=== PATIENT | male | born 1995 | race Hispanic/Latino ===

== ENCOUNTER 2021-05-07 22:00 | Emergency (ER) | payer OTHER, SELFPAY ==
--- NOTE | ~2021-05-07 | XR_ITS ---
XR chest 2V DATE: 05/07/2021 22:19 INDICATION: Palpitations for 2 days TECHNIQUE: PA and lateral views COMPARISON: 11/25/2015 and 09/28/2015 PA and lateral chest FINDINGS: Normal heart size. There is no soft tissue prominence in the right suprahilar area since 09/28/2015. The gabby and mediastinum otherwise appear unremarkable. Normal heart size. Otherwise no pulmonary infiltrate or consolidation, pleural effusion or pulmonary vascular congestion or pneumothorax is detected. Included skeletal structures are unremarkable. IMPRESSION: Interval increased soft tissue prominence in the right suprahilar area since 09/28/2015. Co nsider follow-up chest radiographs or CT thorax Reviewed, dictated and finalized at location A. IMPRESSION: Interval increased soft tissue prominence in the right suprahilar a chandni since 09/28/2015. Consider follow-up chest radiographs or CT thorax
--- NOTE | 2021-05-07 22:01 | ECG_ITS ---
Measurements Intervals [place] Rate: 83 P: 23 MO: 120 QRS: 42 QRSD: 90 T: 31 QT: 343 QTc: 404 Interpretive Statements SINUS RHYTHM WITH SINUS ARRHYTHMIA NORMAL ECG Electronically Signed On 05-08-2021 6:29:17 CDT by Salvatore Braun D.O.
[2021-05-07 22:19] LABS: Basophils Absolute Auto 0.1 K/mm3 (0.0-0.1); Basophils Percent Auto 0.8 % (0.2-1.2); Eosinophils Absolute Auto 0.1 K/mm3 (0-0.3); Eosinophils Percent Auto 1.2 % (0-4.4); Hematocrit 47.1 % (42.0-52.0); Hemoglobin 16.3 g/dL (14.0-18.0); Immature Granulocyte Absolute 0.03 K/mm3 (0.00-0.031); Immature Granulocyte Percent A 0.3 % (0-0.5); Lymphocytes Absolute Auto 3.34 K/mm3 (0.9-3.2); Lymphocytes Percent Auto 35.8 % (18.3-44.2); Mean Corpuscular HGB Conc 34.6 g/dl (32-36); Mean Corpuscular Volume 92.4 fl (80-100); Mean Platelet Volume 10.1 fl (7.4-10.4); Monocytes Absolute Auto 0.8 K/mm3 (0.1-0.6); Monocytes Percent Auto 8.4 % (2.6-8.5); Neutrophils Percent Auto 53.5 % (45.5-73.1); Platelet Count Result 272 k/mm3 (150-375); Red Cell Distribution Width 11.7 % (11.5-14.5); White Blood Count 9.3 K/mm3 (4.5-10.0)
[2021-05-07 22:21] VITALS: BP 155/102; PULSE 90; RESP 18; TEMP 37; O2SAT 98
[2021-05-07 22:30] LABS: Anion Gap 9 mmol/L (8-16); Blood Urea Nitrogen 22 mg/dL (9-20); Calcium 9.7 mg/dL (8.4-10.2); Carbon Dioxide 25 mmol/L (22-30); Chloride 101 mmol/L (98-107); Estimated CRCL calculation 130 ml/min; Estimated Glomerular Filt Rate > 60; Glucose 105 mg/dL (65-110); Potassium 3.7 mmol/L (3.4-5.0); Sodium 135 mmol/L (137-145)
[2021-05-07 22:31] LABS: Prothrombin Time 12.7 Seconds (11.1-14.7)
[2021-05-07 22:32] LABS: Partial Thromboplastin Time 27.1 SECONDS (22.3-36.8)
[2021-05-07 22:40] LABS: Troponin I < 0.012 ng/mL (0.000-0.034)
[2021-05-08 00:19] VITALS: BP 142/92; PULSE 79; RESP 16; O2SAT 99
--- NOTE | 2021-05-08 01:06 | ED.GENADULT ---
HPI - General Adult General Chief complaint: Arrhythmia/Palpitations Stated complaint: irregular heartrate since thursday Time Seen by Provider: 05/08/21 00:59 History of Present Illness HPI narrative: Patient is a 26-year-old gentleman who presents the emergency department chief complaint of palpitations. Patient reports that since Thursday he has been having episodes where he feels as though his heart skipping a beat. Patient reports that he drinks about 1 coffee per day denies energy drinks denies any stimulant powders does report that he does smoke marijuana both vape and also smokes the actual plan. Patient states that has had no chest pain no diaphoresis no syncope. Related Data Allergies Allergy/AdvReac Type Severity Reaction Status Date / Time No Known Allergies Allergy Mild Verified 03/02/13 19:40 Review of Systems Review of Systems: A 10 system review of systems was completed on the patient and is negative except for what is stated in the HPI. Nursing and ancillary documentation was reviewed. Exam Narrative: GENERAL: Well-appearing, well-nourished, and in no acute distress. HEAD: Normocephalic, atraumatic. EYES: PERRLA and EOMI. ENT: Nares clear, no rhinorrhea or epistaxis. Mucous membranes moist. NECK: Supple. CHEST: Clear to auscultation. No respiratory distress. HEART: Regular rate and rhythm. No murmur heard. Normal peripheral pulses. ABDOMEN: Soft, nontender, nondistended, normal active bowel sounds. EXTREMITIES: Normal range of motion. No edema. SKIN: Warm, dry, no rash. NEURO: No focal deficits. Alert and oriented x3. PSYCH: Normal mood and affect. Course Course Emergency Course: EKG is sinus rhythm with a rate of 83 filler room attendant shows heart rate is 65 with occasional PACs and PVCs Vital Signs Vital signs: Vital Signs Temperature 37.0 C 05/07/21 22:21 Pulse Rate 90 05/07/21 22:21 Respiratory Rate 18 05/07/21 22:21 Blood Pressure 155/102 H 05/07/21 22:21 Pulse Oximetry 98 05/07/21 22:21 Temperature 37.0 C 05/07/21 22:21 Pulse Rate 79 05/08/21 00:19 Respiratory Rate 16 05/08/21 00:19 Blood Pressure 142/92 H 05/08/21 00:19 Pulse Oximetry 99 05/08/21 00:19 Medical Decision Making Vital Signs Vital Signs: Vital Signs Temperature 37.0 C 05/07/21 22:21 Pulse Rate 90 05/07/21 22:21 Respiratory Rate 18 05/07/21 22:21 Blood Pressure 155/102 H 05/07/21 22:21 Pulse Oximetry 98 05/07/21 22:21 Temperature 37.0 C 05/07/21 22:21 Pulse Rate 79 05/08/21 00:19 Respiratory Rate 16 05/08/21 00:19 Blood Pressure 142/92 H 05/08/21 00:19 Pulse Oximetry 99 05/08/21 00:19 Lab Data Result diagrams: 05/07/21 22:09 05/07/21 22:10 Labs: Lab Results 05/07/21 05/07/21 05/07/21 Range/Units 22:09 22:09 22:10 WBC 9.3 (4.5-10.0) K/mm3 RBC 5.10 (4.6-6.20) M/mm3 Hgb 16.3 (14.0-18.0) g/dL Hct 47.1 (42.0-52.0) % MCV 92.4 (80-100) fl MCH 32.0 (26-34) pg MCHC 34.6 (32-36) g/dl RDW 11.7 (11.5-14.5) % Plt Count 272 (150-375) k/mm3 MPV 10.1 (7.4-10.4) fl Immature Gran % (Auto) 0.3 (0-0.5) % Neut % (Auto) 53.5 (45.5-73.1) % Lymph % (Auto) 35.8 (18.3-44.2) % Josephine % (Auto) 8.4 (2.6-8.5) % Eos % (Auto) 1.2 (0-4.4) % Baso % (Auto) 0.8 (0.2-1.2) % Lymph # (Auto) 3.34 H (0.9-3.2) K/mm3 Josephine # (Auto) 0.8 H (0.1-0.6) K/mm3 Eos # (Auto) 0.1 (0-0.3) K/mm3 Baso # (Auto) 0.1 (0.0-0.1) K/mm3 Abs Immat Gran (auto) 0.03 (0.00-0.031) K/mm3 Absolute Neuts (auto) 5.0 (1.3-6.7) K/mm3 Absolute Nucleated RBC 0.0 (0.0-0.012) K/mm3 Nucleated RBC % 0.0 (0.0-0.2) % PT 12.7 (11.1-14.7) Seconds INR 1.0 APTT 27.1 (22.3-36.8) SECONDS Sodium 135 L (137-145) mmol/L Potassium 3.7 (3.4-5.0) mmol/L Chloride 101 (98-107) mmol/L Carbon Dioxide 25 (22-30) mmol/L Anion Gap 9 (8-16) mmol/L B
[2021-05-08 01:16] VITALS: BP 137/77; PULSE 68; RESP 18; O2SAT 97
== END 2021-05-08 01:28 | disposition home or self-care (01) ==
PROVIDERS: Emergency Medicine; Emergency Provider Emergency Medicine; PCP Nurse Practitioner Family
DX: R00.2 Palpitations (principal); I49.3 Ventricular premature depolarization
CPT/HCPCS: 36415; 71046; 80048; 84484; 85025; 85610; 85730; 93005; 99284

== ENCOUNTER 2021-09-23 13:30 | Emergency (ER) | payer OTHER, SELFPAY ==
[2021-09-23] VITALS (13 sets, daily range): BP systolic 138–173; BP diastolic 72–93; PULSE 72–93; RESP 16–18; TEMP 36.2–36.6; O2SAT 82–100
--- NOTE | ~2021-09-23 | CT_ITS ---
EXAMINATION: CT abdomen pelvis w con EXAM DATE: 09/23/2021 20:42 INDICATION: Abdominal pain. TECHNIQUE: Spiral CT of the abdomen and pelvis was performed following intravenous injection of 100 m L Omnipaque 350. Axial, coronal and sagittal images of the abdomen and pelvis were reviewed. The do se-length product (DLP) for this examination was 1259.88 mGy-cm. The exposure was tailored according to patient size (auto mA exposure control), and iterative reconstruction (ASIR) was used as addition al dose reduction technique. Comparison is made to prior examination from 2010. FINDINGS: The liver, spleen, adrenal glands and pancreas are unremarkable. Gallbladder is unremarkab le. No biliary obstruction. Portal and splenic veins are patent. Kidneys enhance symmetrically. T here is no hydronephrosis. The prostate is unremarkable. The bladder is unremarkable. There is no retroperitoneal or pelvic lymphadenopathy. Mild scattered colonic diverticulosis with mild to moderate amount of inflammation along the descendi ng colon probably acute uncomplicated diverticulitis. Probable appendectomy. Some right lower quadran t surgical clips. The stomach and small bowel are unremarkable. There is expected amount of colonic stool. No free intraperitoneal gas. The heart is normal in size. There are no pericardial or pl eural effusions. The lung bases are unremarkable. The bones are unremarkable. IMPRESSION: Sigmoid colonic acute uncomplicated diverticulitis. Reviewed, dictated and finalized at location A. THERAPIST
--- NOTE | 2021-09-23 18:24 | PC.NURSE ---
Pt states he experienced foamy urine, used a urine test strip to measure levels, he states his protein in his urine was high in addition to lower abdominal pain and back pain since Thursday
--- NOTE | 2021-09-23 18:29 | ED.ABDPAIN ---
HPI - Abdominal Pain General Chief Complaint: Abdominal Pain Stated Complaint: abd pain/back Time Seen by Provider: 09/23/21 18:26 Source: patient Limitations: no limitations History of Present Illness HPI narrative: Patient presents with lower abdominal pain started 3 days ago associated with nausea, history of appendectomy. The symptoms are improving but patient urine test at home showed protein. Patient is very anxious about it. Currently patient denies any fever, chills, nausea, vomiting. Patient smoke marijuana and drinks alcohol Related Data Allergies Allergy/AdvReac Type Severity Reaction Status Date / Time No Known Allergies Allergy Mild Verified 09/23/21 19:42 Review of Systems Review of Systems: CONSTITUTIONAL: Denies fever, chills, or sweats. EYES: Denies visual changes, redness, or discharge. ENT: Denies rhinorrhea, congestion, sore throat, or otalgia. CARDIOVASCULAR: Denies chest pain, palpitations, or edema. RESPIRATORY: Denies cough or dyspnea. GASTROINTESTINAL: Denies abdominal pain, nausea, vomiting, or diarrhea. GENITOURINARY: Denies dysuria or hematuria. SKIN: Denies rash or itching. MUSCULOSKELETAL: Denies back pain, joint pain, or myalgia. NEUROLOGIC: Denies headache, numbness, or weakness. PSYCHIATRIC: Denies anxiety or depression. Exam Narrative: General appearance: Well-developed, well-nourished Skin: Normal color Head: Normocephalic, nontraumatic Eyes: Clear conjunctiva ENT: Oropharynx normal, ears normal, nose normal Neck: Supple, nontender Chest and respiratory: Airway patent, no respiratory distress, no accessory muscle use Heart: Regular rate/rhythm Abdomen: Soft, mild diffuse tenderness lower abdomen, no guarding or rebound no organomegaly, quiet bowel sounds Vascular: Normal peripheral pulses, normal capillary refill. Musculoskeletal: Normal range of motion, nontender back Neurologic: Alert and oriented ?3, [employer]BER is normal as tested, no gross motor deficit Course Course Emergency Course: Stable Vital Signs Vital signs: Vital Signs Temperature 36.6 C 09/23/21 13:38 Pulse Rate 93 09/23/21 13:38 Respiratory Rate 18 09/23/21 13:38 Blood Pressure 173/93 H 09/23/21 13:38 Pulse Oximetry 99 09/23/21 13:38 Temperature 36.2 C L 09/23/21 15:22 Pulse Rate 93 09/23/21 15:22 Respiratory Rate 16 09/23/21 19:22 Blood Pressure 138/80 09/23/21 19:22 Pulse Oximetry 99 09/23/21 19:22 MDM - Abdominal Pain MDM Narrative Medical decision making narrative: Work-up showed uncomplicated diverticulitis. Patient will be discharged to follow-up with his family physician in 5 to 7 days. Differential Diagnosis Differential diagnosis: Likely abdominal pain, constipation, diverticulitis and pancreatitis Lab Data Result diagrams: 09/23/21 19:08 09/23/21 19:39 Labs: Lab Results 09/23/21 09/23/21 09/23/21 Range/Units 19:08 19:08 19:39 WBC 13.3 H (4.5-10.0) K/mm3 RBC 4.78 (4.6-6.20) M/mm3 Hgb 15.5 (14.0-18.0) g/dL Hct 45.8 (42.0-52.0) % MCV 95.8 (80-100) fl MCH 32.4 (26-34) pg MCHC 33.8 (32-36) g/dl RDW 12.1 (11.5-14.5) % Plt Count 225 (150-375) k/mm3 MPV 10.0 (7.4-10.4) fl Immature Gran % (Auto) 0.4 (0-0.5) % Neut % (Auto) 71.0 (45.5-73.1) % Lymph % (Auto) 17.1 L (18.3-44.2) % Charlton % (Auto) 10.3 H (2.6-8.5) % Eos % (Auto) 0.8 (0-4.4) % Baso % (Auto) 0.4 (0.2-1.2) % Lymph # (Auto) 2.27 (0.9-3.2) K/mm3 [place] # (Auto) 1.4 H (0.1-0.6) K/mm3 Eos # (Auto) 0.1 (0-0.3) K/mm3 Baso # (Auto) 0.1 (0.0-0.1) K/mm3 Abs Immat Gran (auto) 0.05 H (0.00-0.031) K/mm3 Absolute N
[2021-09-23] MEDS: SODIUM CHLORIDE 0.9% IV 1,000 ML 999 ML IV CONT (19:18)
[2021-09-23 19:25] LABS: Basophils Absolute Auto 0.1 K/mm3 (0.0-0.1); Basophils Percent Auto 0.4 % (0.2-1.2); Eosinophils Absolute Auto 0.1 K/mm3 (0-0.3); Eosinophils Percent Auto 0.8 % (0-4.4); Hematocrit 45.8 % (42.0-52.0); Hemoglobin 15.5 g/dL (14.0-18.0); Immature Granulocyte Absolute 0.05 K/mm3 (0.00-0.031); Immature Granulocyte Percent A 0.4 % (0-0.5); Lymphocytes Absolute Auto 2.27 K/mm3 (0.9-3.2); Lymphocytes Percent Auto 17.1 % (18.3-44.2); Mean Corpuscular HGB Conc 33.8 g/dl (32-36); Mean Corpuscular Hemoglobin 32.4 pg (26-34); Mean Corpuscular Volume 95.8 fl (80-100); Monocytes Absolute Auto 1.4 K/mm3 (0.1-0.6); Monocytes Percent Auto 10.3 % (2.6-8.5); Neutrophils Absolute Auto 9.4 K/mm3 (1.3-6.7); Platelet Count Result 225 k/mm3 (150-375); Red Blood Count 4.78 M/mm3 (4.6-6.20); Red Cell Distribution Width 12.1 % (11.5-14.5); White Blood Count 13.3 K/mm3 (4.5-10.0)
[2021-09-23 19:35] LABS: Add Urine Microscopic? YES; Appearance Urine Clear (Clear); Bilirubin Urine Negative (Negative); Blood Urine Negative (Negative); Color Urine Yellow (Yellow); Glucose Urine UA Negative (Negative); Ketones Urine Trace mg/dL (Negative); Leukocyte Esterase Ur Negative LEU/UL (Negative); Mucus Urine Few /lpf; Nitrate Urine Negative (Negative); Protein Urine Negative (Negative); RBC Urine 0-2 /hpf (0-2); Specific Grav Ur 1.021 (1.001-1.035); Squamous Epithelial Cell Urine Rare /hpf (Few); Urobilinogen Urine Negative mg/dL (<2.0); WBC Urine 0-3 /hpf
[2021-09-23 19:58] LABS: Alanine Aminotransferase 47 U/L (4-50); Albumin Level 4.1 g/dL (3.5-5.1); Alkaline Phosphatase 55 U/L (38-126); Anion Gap 9 mmol/L (8-16); Aspartate Amino Transferase 25 U/L (17-59); Bilirubin,Total 0.7 mg/dL (0.2-1.3); Blood Urea Nitrogen 12 mg/dL (9-20); Calcium 8.9 mg/dL (8.4-10.2); Carbon Dioxide 25 mmol/L (22-30); Chloride 103 mmol/L (98-107); Estimated CRCL calculation 128 ml/min; Estimated Glomerular Filt Rate > 60; Glucose 93 mg/dL (65-110); Lipase 24 U/L (23-300); Potassium 4.1 mmol/L (3.4-5.0); Sodium 137 mmol/L (137-145)
== END 2021-09-23 22:00 | disposition home or self-care (01) ==
PROVIDERS: Emergency Provider Emergency Medicine; PCP Nurse Practitioner Family
DX: K57.32 Diverticulitis of large intestine without perforation or abscess without bleeding (principal)
CPT/HCPCS: 36415; 74177; 80053; 81001; 83690; 85025; 96360; 99284; J7030; Q9967

== ENCOUNTER 2023-05-01 13:39 | Emergency (ER) | payer OTHER, SELFPAY ==
[2023-05-01 13:49] VITALS: BP 169/89; PULSE 91; RESP 16; TEMP 37.4; O2SAT 98
--- NOTE | 2023-05-01 13:58 | ED.GENADULT ---
HPI - General Adult General Chief complaint: Dental/Oral Stated complaint: corners of mouth cracked,chapped lips Time Seen by Provider: 05/01/23 13:59 Source: patient Mode of arrival: ambulatory History of Present Illness HPI narrative: 28-year-old male presented for complaint of dry cracked lips and cracking to the corners of the mouth worsening over the past week. He has used Aquaphor and chapstick without relief. Denies any mouth or throat pain, gum sores, bleeding, or irritation. No recent abx use. Related Data Allergies Allergy/AdvReac Type Severity Reaction Status Date / Time No Known Allergies Allergy Mild Verified 05/01/23 13:42 Review of Systems Review of Systems: CONSTITUTIONAL: Denies body aches, fever, chills ENT: Denies rhinorrhea, congestion, sore throat, or otalgia. Reports lip cracking CARDIOVASCULAR: Denies chest pain, palpitations RESPIRATORY: Denies cough or dyspnea. SKIN: Denies rash, itching, or wounds. MUSCULOSKELETAL: Denies myalgia. NEUROLOGIC: Denies headache, numbness, tingling, or weakness. [facility] Past Medical History Medical History (Updated 05/01/23 @ 14:10 by Sara Owen APRN) No pertinent past medical history Comments At time of signature, I have reviewed and agree with nursing past medical, surgical, social and family history unless otherwise noted. Please see nursing chart for further information. There is no relevant family history pertinent to the presenting complaint Exam Narrative: GENERAL: Well-appearing no acute distress. HEAD: Normocephalic, atraumatic. EYES: EOMI. No redness or drainage. Conjunctivae normal. ENT: Mucous membranes pink and moist, gums and oral mucosa without lesions, tongue is normal, no apparent fungal infection; Bilateral corners of mouth are cracked, bottom lip dry and peeling, no swelling, drainage or bleeding to the sites. TMs normal bilaterally. Throat normal. Uvula midline. NECK: Normal AROM. No lymphadenopathy. CHEST: No respiratory distress. Clear to auscultation. HEART: Regular rate and rhythm. No murmur appreciated. SKIN: Warm, dry, no rash. Normal skin turgor. NEURO: No focal deficits. Alert and oriented x3. Gait steady. Course Course Emergency Course: Patient is aware of diagnosis, understands and agrees to treatment plan. Anticipatory guidance given. Patient agrees to follow-up as directed and is aware of reasons to seek care at the emergency department. Portions of this record may have been created with voice recognition software Level of Care: Express Care Visit Medical Decision Making MDM Narrative Medical decision making narrative: Discussed physical exam findings c/w angular cheilitis, does not appear fungal. Rx mupirocin. He will closely monitor. Advised supportive measures and signs/symptoms to go to the ER. Pt is appropriate for outpt treatment and f/u. Differential Diagnosis Differential Diagnosis: aphthous ulcer, angular cheilitis, gingivostomatitis, HFMD, oral candidiasis Discharge Plan Discharge Clinical Impression: Angular cheilitis Patient Disposition: Home, Self-Care Condition: Stable Instructions: Antibiotic Form Additional Instructions: Keep the area clean and dry Use the ointment as directed Go to the ER for worsening symptoms or concerns Follow up with primary care provider in 1-2 weeks as needed. Prescriptions: New mupirocin 2 % ointment 1 applic topical BID 14 Days Qty: 22 0RF Follow-up/Referrals: Bowen,NIALL Amos [Primary Care Provider] - Time of Disposition: 14:08
== END 2023-05-01 14:09 | disposition home or self-care (01) ==
PROVIDERS: Emergency Provider Nurse Practitioner Family; PCP Nurse Practitioner Family
DX: K13.0 Diseases of lips (principal)
CPT/HCPCS: 99213; G0463